=== PATIENT | male | born 1995 | race African-American/Black ===

== ENCOUNTER 2020-06-13 23:45 | Emergency (ER) | payer MEDICAID, OTHER ==
[~2020-06-13] VITALS: Ht 188 cm; Wt 113.0 kg
[2020-06-13 23:49] VITALS: BP 138/93
== END 2020-06-14 00:19 | disposition home or self-care (01) ==
LOC: ER 23:47
DX: S40.861A Insect bite (nonvenomous) of right upper arm, initial encounter (principal); W57.XXXA Bitten or stung by nonvenomous insect and other nonvenomous arthropods, initial encounter; Y93.89 Activity, other specified; Y92.89 Other specified places as the place of occurrence of the external cause; Y99.8 Other external cause status
CPT/HCPCS: 99282

== ENCOUNTER 2021-01-05 11:32 | Emergency (ER) | payer MEDICAID ==
[~2021-01-05] VITALS: Ht 177.8 cm; Wt 90.0 kg
[2021-01-05] MEDS: IBUPROFEN 600MG TABLET PO STA ×2 (12:58→12:59)
[2021-01-05 12:59] VITALS: BP 145/87
[2021-01-05 13:38] LABS: CLARITY URINE CLEAR (CLEAR); COLOR URINE DARK YELLOW (YELLOW); KETONES URINE TRACE (NEGATIVE); LEUKOCYTE ESTERASE URINE NEGATIVE (NEGATIVE); NITRITE URINE NEGATIVE (NEGATIVE); OCCULT BLOOD URINE NEGATIVE (NEGATIVE); PROTEIN URINE NEGATIVE (NEGATIVE); SPECIFIC GRAVITY URINE 1.025 (1.005-1.030)
[2021-01-05] MEDS ORDERED: SULF1TAB48 MT (13:43)
[2021-01-05] MEDS ORDERED: IBUP-2029 MT (13:43)
[2021-01-05] MEDS ORDERED: CLOT15CR27 TP (13:43)
[2021-01-05] MEDS ORDERED: CEPH500T MT (13:43)
== END 2021-01-05 13:53 | disposition home or self-care (01) ==
LOC: ER 11:32
DX: L73.9 Follicular disorder, unspecified (principal); N48.1 Balanitis
CPT/HCPCS: 81003; 99283

== ENCOUNTER 2021-01-07 13:21 | Emergency (ER) | payer MEDICAID ==
[~2021-01-07] VITALS: Ht 188 cm; Wt 118.2 kg
[~2021-01-07 13:21] MED LIST: CEPH500T MT; CLOT15CR27 TP; IBUP-2029 MT; SULF1TAB48 MT
[2021-01-07 13:42] VITALS: BP 146/96
== END 2021-01-07 15:57 | disposition left against medical advice (07) ==
LOC: ER 13:21
DX: Z53.21 Procedure and treatment not carried out due to patient leaving prior to being seen by health care provider (principal)